=== PATIENT | male | born 1995 | race Two or more races ===

== ENCOUNTER 2018-10-10 18:50 | Emergency (ER) | payer OTHER ==
[2018-10-10] MEDS ORDERED: LIDOCAINE 1% INJ (10 MG/ML) 10 ML MDV INJ ONE (21:46)
[2018-10-10] MEDS ORDERED: CEFTRIAXONE INJ 250 MG VIAL IM ONE (21:46)
[2018-10-10] MEDS ORDERED: AZITHROMYCIN 250 MG TABLET PO ONE (21:47)
--- NOTE | 2018-10-10 21:50 | ER Document Report ---
ED General - General Chief Complaint: STD Exposure Stated Complaint: STD CHECK Time Seen by Provider: 10/10/18 21:43 Primary Care Provider: RAÚL ADLER DO [Primary Care Provider] - Follow up as needed Information source: Patient TRAVEL OUTSIDE OF THE [place] IN LAST 30 DAYS: No - HPI Patient complains to provider of: Worried about possible STD Onset: Other - Months Onset/Duration: Persistent Quality of pain: Burning Severity: None Associated symptoms: denies: Chills, Fever Exacerbated by: Denies Relieved by: Denies Similar symptoms previously: No Recently seen / treated by doctor: No Notes: 22-year-old male coming in today concerned about possible STD. Having some dysuria. No fevers or chills. No joint pain. - Related Data Allergies/Adverse Reactions: No Known Allergies Allergy (Unverified 10/10/18 19:07) Past Medical History - General Information source: Patient - Social History Smoking Status: Never Smoker Family History: Reviewed & Not Pertinent Review of Systems - Review of Systems Notes: Constitutional: No fevers. No chills. EENT: No eye redness. No eye pain. No ear pain. No sore throat. Cardiovascular: No chest pain. No palpitations. Respiratory: No cough. No shortness of breath. No respiratory distress. Gastrointestinal: No abdominal pain. No nausea, vomiting, or diarrhea. Genitourinary: Atraumatic. No lesions. No pain. No discharge. Positive for dysuria Musculoskeletal: Atraumatic. No swelling. No deformities. Skin: No rash or lesions. Lymphatic: No swollen lymph nodes. Neurologic: No headache. No syncope. Psychiatric: No suicidal or homicidal ideation. Physical Exam - Vital signs Vitals: Temp Pulse Resp BP Pulse Ox 98.4 F 71 16 137/74 H 100 10/10/18 19:54 10/10/18 19:54 10/10/18 19:54 10/10/18 19:54 10/10/18 19:54 - Notes Notes: General: Well-developed, well-nourished. In no acute distress. Non-toxic appearing. Cardiac: Well-perfused. Regular rate and rhythm. No murmurs, rubs, or gallops. Pulmonary: No respiratory distress. No cyanosis. Bilateral lung fiels are clear to auscultation. Abdominal: Non-distended. Non-rigid. Bowels sounds are present in all four quadrants. No guarding or rebound. HEENT: Head is atraumatic. Conjunctivae not reddened. No tearing. PERRL. EOMI. Orbits atraumatic. No periorbital swelling or erythema. Oropharynx is without erythema, swelling, or exudates. Neck: Supple. No adenopathy. No meningismus. Dermatologic: Warm with good turgor. No rash. Atraumatic. Chest: Atraumatic. No chest wall tenderness to palpation. Musculoskeletal: Moves all extremities well. No range of motion deficits. no muscular or joint tenderness. No paraspinal muscle tenderness. no midline spinal tenderness or step-off. Genitourinary: Testicles without swelling or tenderness. No testicular masses. Uncircumcised penis. No urethral discharge. No penile lesions. Foreskin easily retracts over the head Neurologic: No gross neurologic deficits. Psychiatric: Normal mood. Course - Vital Signs Vital signs: Temp Pulse Resp BP Pulse Ox 98.4 F 71 16 137/74 H 100 10/10/18 19:54 10/10/18 19:54 10/10/18 19:54 10/10/18 19:54 10/10/18 19:54 Discharge - Discharge Clinical Impression: Urethritis Condition: Good Disposition: HOME, SELF-CARE Instructions: Urethritis ([facility]) Additional Instructions: You are effectively treated for gonorrhea and chlamydia tonight. You can contract these and many other STDs from partners if you have unprotected sex. Be careful when you have unprotected sex as you may contracts diseases such as HIV and hepatitis that do not have a cure. Referrals: RAÚL ADLER, DO [Primary Care Provider] - Follow up as needed
[2018-10-10 22:23] VITALS: BP 128/68
== END 2018-10-10 22:32 | disposition home or self-care (01) ==
LOC: ER 18:50
DX: Z20.2 Contact with and (suspected) exposure to infections with a predominantly sexual mode of transmission (principal); R30.0 Dysuria
CPT/HCPCS: 99283; 96372; J0696